=== PATIENT | female | born 1980 | race Asian ===

== ENCOUNTER 2023-11-22 15:48 | Outpatient (AMB) | payer BC, SELFPAY ==
--- NOTE | 2023-11-22 16:03 | A.OFFPC_ITS ---
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 Intake Note: New patient visit Residential Case Manager Required: No Allergies acetaminophen [From Vicodin] Allergy (Intermediate, Verified 11/22/23 16:04) Hives hydrocodone [From Vicodin] Allergy (Intermediate, Verified 11/22/23 16:04) Hives oxycodone [From Percocet] Allergy (Intermediate, Verified 11/22/23 16:04) Hives Tobacco use date assessed: 11/22/23 Dental Screening Dental Screen Date: 11/22/23 Did you have a dental visit in the last 12 months?: Yes Did you have a dental problem in the last 6 months where you did not have access to dental care?: No Was dental information given to patient?: Patient has dentist HPI HPI Comments History of Present Illness Details This is a 43-year-old female with a past medical history of elevated blood pressure, increased weight, impaired fasting glucose, anxiety, asthma, hyperlipidemia and attention deficit disorder presenting for a follow up. She transferred from my panel at [facility]. I last saw her in 07/17/2023. She is currently on Zepbound 12.5 mg. She has had 2 injections at this dose. She feels excellent. She says this medication has changed her life for the better in many ways. She is still doing weight training. Now she says she is seeing the effects of her training. She did not lose weight on the 10 mg dosage so she is hoping she has more of an effect with the 12.5. She had elevated blood pressure, but since losing weight her blood pressure has normalized. She is followed by a therapist and psychiatrist. They have reduced her dose of bupropion because she has been feeling really well. She is a busy mother. She has 11 and 15-year-old boys. ROS: Constitutional: No unexplained weight loss, fever, chills, fatigue or night sweats. Gastrointestinal: No anorexia, nausea, vomiting or diarrhea. No abdominal pain or blood in stool. Endocrine: No cold or heat intolerance. No polyuria or polydipsia. Physical exam: Constitutional: Alert, in no distress. Respiratory: Clear to auscultation. Cardiovascular: S1 S2 regular. No murmurs. Psychiatric: Normal mood and affect [facility] Medical History (Updated 11/22/23 @ 16:42 by MARIA LUISA Patel) Overweight Lump of right thigh Intermittent constipation IFG (impaired fasting glucose) Hyperlipidemia Elevated blood pressure reading ADD (attention deficit disorder) Asthma Anxiety disorder Surgical History (Updated 11/22/23 @ 16:17 by Janeen Cardona CMA) H/O cervical polypectomy Family History (Updated 11/22/23 @ 16:16 by Janeen Cardona CMA) Other Family history not known due to adoption Social History (Updated 11/22/23 @ 16:08 by Janeen Cardona CMA) Housing: House Patient Tobacco Use Status: Former Tobacco user Years Smoked: highschool years e-Cigarette/Vaping Use: Never Used Substance Use Type: Marijuana service: No Current occupational status: employed 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 1. Little interest or pleasure in doing things: several days 2. Feeling down, depressed, or hopeless: not at all 3. Trouble falling or staying asleep, or sleeping too much: not at all 4. Feeling tired or having little energy: several days 5. Poor appetite or overeating: not at all 6. Feeling bad about yourself - or that you are a failure or have let yourself or your family down: not at all 7. Trouble concentrating on things, such as reading the newspaper or watching television: several days 8. Moving or speaking so slowly that other people could have noticed. Or the opposite - being so fidgety or restless that you have been moving around a lot more than usual: not at all 9. Thoughts that you would be better off or of hurting yourself in some way: not at all Total score: 3 Depression Screening Interpretation: Positive Depression Screening Done: Yes 84336 - PHQ-9 Billing: Yes Source: Developed by Drs. Gene Ragsdale, Sunita Brooks, Juanjo Ortega and colleagues, with an educational donna from [employer]. Thrive Questionnaire Date Thrive assessed: 11/22/23 I am a: Patient What is your living situation today?: I have a steady place to live Within the past 12 months, did the food you bought not last and you didn't have the money to get more?: Never true Within the past 12 months, did you worry whether your food would run out before you got money to buy more?: Never true Do you have trouble paying for medicines?: No Do you have trouble getting transportation to medical appointments?: No Do you have trouble paying your heating and electricity bill?: No Do you have trouble taking care of your child, family member or friend?: No Do you have trouble with day-to-day activities such as bathing, preparing meals, shopping, managing finances, etc.?: No Are you currently unemployed and looking for a job?: No Are you interested in more education?: No Please select the resources that you would like help with: None Currently or been in a relationship where the following occur: No concerns reported THRIVE Score: 0 AUDIT C Alcohol Use Questionnaire (AUDIT-C) 1. How often do you have a drink containing alcohol?: 2-3 times a week 2. How many drinks containing alcohol do you have on a typical day when you are drinking?: 3 or 4 3. How often do you have six or more drinks on one occasion?: Less than monthly Total Score: 5 ALEX-7 AMB Questionnaire ALEX-7 Date ALEX - 7 assessed: 11/22/23 Feeling nervous, anxious, or on edge: 0 = Not at all Not being able to stop or control worryin = Not at all Worrying too much about different things: 0 = Not at all Trouble relaxin = Several days Being so restless that it is hard to sit still: 0 = Not at all Becoming easily annoyed or irritable: 1 = Several days Feeling afraid as if something awful might happen: 0 = Not at all Total ALEX-7 score (0-4 normal; 5-9 mild; 10-14 moderate; 15-21 severe): 2 Source: Developed by Drs. Gene Ragsdale, Sunita Brooks, Juanjo Ortega and colleagues, with an educational donna from [employer]. ALEX-7 Assessment Billing ALEX-7 Assessment Tool: ALEX-7 Assessment 43270 Physical exam (Primary Care) Vital Signs: Last Vital Signs Temp 98.6 F 11/22/23 16:09 Pulse 80 11/22/23 16:09 Resp 12 11/22/23 16:09 BP 116/72 11/22/23 16:09 Pulse Ox 98 11/22/23 16:09 Oxygen Delivery Method Room Air 11/22/23 16:09 BMI result Body Mass Index 23.9 Tobacco/Smoking Status: Tobacco use Status Tobacco use date assessed 11/22/23 11/22/23 16:13 Patient Tobacco Use Status Former Tobacco user 11/22/23 16:13 e-Cigarette/Vaping Use Never Used 11/22/23 16:13 Depression Screening Interpretation: Positive Currently or been in a relationship where the following occur: No concerns reported Assessment and Plan Assessment & Plan (1) IFG (impaired fasting glucose): Code(s): R73.01 - Impaired fasting glucose (2) Hyperlipidemia: Code(s): E78.5 - Hyperlipidemia, unspecified Qualifiers: Hyperlipidemia type: pure hypercholesterolemia Qualified Code(s): E78.00 - Pure hypercholesterolemia, unspecified Plan In summary this is a 43-year-old previously overweight female who has done very well on GLP1. She is unsure if she is going to increase to the 15 mg dosage. She will message me after the next couple of weeks on the 12.5 mg dose. She tolerates it well. Her BMI is within normal now. Elevated blood pressure resolved. We will check hemoglobin A1c, fasting glucose and lipid profile in another couple of months. Orders placed. She will schedule her physical exam which is due in April. Orders: Orders Hemoglobin A1c Today E78.5 - Hyperlipidemia, unspecified, R73.01 - Impaired fasting glucose Lipid Panel Today E78.5 - Hyperlipidemia, unspecified, R73.01 - Impaired fasting glucose Glucose Fasting Today E78.5 - Hyperlipidemia, unspecified, R73.01 - Impaired fasting glucose Coding Level of Care Code Est Pt Level 4 (36964) Complex EM visit Add On G2211 Diagnoses IFG (impaired fasting glucose) R73.01 Pure hypercholesterolemia E78.00 Hyperlipidemia type: pure hypercholesterolemia Additional Codes ALEX-7 Assessment Billing - ALEX-7 Assessment Tool: ALEX-7 Assessment 97250 ([id number])
[2023-11-22 16:09] VITALS: BP 116/72; PULSE 80; RESP 12; TEMP 37; O2SAT 98; BMI 23.9
== END 2023-11-22 16:31 | disposition home or self-care (01) ==
PROVIDERS: Visit Provider Physician Assistant Medical
DX: R73.01 Impaired fasting glucose (principal); E78.00 Pure hypercholesterolemia, unspecified
CPT/HCPCS: 99214

== ENCOUNTER 2024-05-08 16:14 | Outpatient (AMB) | payer BC, SELFPAY ==
--- NOTE | 2024-05-08 16:16 | MHC.PC.OV ---
Vital Signs 05/08/24 16:23 Height 5 ft 2.36 in Weight 123 lb 8 oz BMI 22.3 BP 128/72 Blood Pressure Location Lt brachial Position Sitting Pulse 99 Pulse Source Pulse Oximeter Pulse Oximetry (%) 100 Oxygen Delivery Method Room Air Intake Visit Reasons: annual physical exam Allergies acetaminophen [From Vicodin] Allergy (Intermediate, Verified 05/08/24 16:25) Hives hydrocodone [From Vicodin] Allergy (Intermediate, Verified 05/08/24 16:25) Hives oxycodone [From Percocet] Allergy (Intermediate, Verified 05/08/24 16:25) Hives Tobacco use date assessed: 05/08/24 Dental Screening Dental Screen Date: 05/08/24 Did you have a dental visit in the last 12 months?: Yes Did you have a dental problem in the last 6 months where you did not have access to dental care?: No Was dental information given to patient?: Patient has dentist HPI HPI Comments History of Present Illness Details This is a 43-year-old female with a past medical history of elevated blood pressure, increased weight, impaired fasting glucose, anxiety, asthma, hyperlipidemia and attention deficit disorder presenting for a physical exam. She is currently on Zepbound 10 mg She feels excellent. She says this medication has changed her life for the better in many ways. She is still doing weight training. Her BMI is now 22.3. She has lost another 10 lb since her last visit with me at the end of the summer. She is also maintaining her weight loss. She had elevated blood pressure, but this normalized since losing weight. Her recent lab results were reviewed, and they are normal including A1c and cholesterol results. She is followed by a therapist and psychiatrist. She is stable on her medications. She is a busy mother. She has twelve and 16-year-old boys. 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 Up to date. Mammogram is up to date. Stays UTD with dental and eye exams. ROS: Constitutional: No unexplained weight loss, fever, chills, fatigue or night sweats. Eyes: No vision changes, blurry vision, double vision, eye pain, eye redness, eye discharge. ENT: No hearing loss, sneezing, congestion, runny nose or sore throat. Respiratory: No shortness of breath, cough or sputum production. Cardiovascular: No chest pain, chest pressure or chest discomfort. No palpitations or pedal edema. Gastrointestinal: No anorexia, nausea, vomiting or diarrhea. No abdominal pain or blood in stool. Genitourinary: No dysuria, hematuria, urinary frequency. Neurologic: No headache, dizziness, syncope, unilateral weakness, ataxia, numbness or tingling in the extremities. Musculoskeletal: No muscle pain, back pain, joint pain or swelling. Hematologic/Lymphatics: No bleeding or bruising. No painful lymph nodes. Skin: No rash or itching. No changing moles or new skin lesions. Endocrine: No cold or heat intolerance. No polyuria or polydipsia. Psychiatric:No SI/HI. Physical exam: Constitutional: Alert, in no distress. Head: Normocephalic. Eyes: Pupils are equal, round and reactive to light. Extraocular muscles intact. Ear, Nose and Throat: Canals clear. TMs normal. Normal nasal mucosa. No nasal discharge. No oral lesions. Neck: Supple, Full range of motion. No lymphadenopathy. No palpable thyroid masses. Respiratory: Clear to auscultation. Cardiovascular: S1 S2 regular. No murmurs. No carotid bruits. Gastrointestinal: Abdomen soft, non-tender, non-distended. Normal bowel sounds. No palpable masses. Neurologic: No focal neurological deficits. Symmetric patellar reflexes. Moves all extremities spontaneously. Sensation intact bilaterally. Skin: No rashes or lesions. Musculoskeletal: No gross deformities. Normal range of motion. Extremities: Warm and well perfused. No clubbing, cyanosis or edema. 3+ peripheral pulses bilaterally. Psychiatric: Normal mood and affect [facility] Medical History (Updated 05/08/24 @ 17:28 by MARIA LUISA Patel) Routine physical examination Overweight Lump of right thigh Intermittent constipation IFG (impaired fasting glucose) Hyperlipidemia Elevated blood pressure reading ADD (attention deficit disorder) Asthma Anxiety disorder Surgical History H/O cervical polypectomy Family History Other Family history not known due to adoption Social History Housing: House Patient Tobacco Use Status: Former Tobacco user Years Smoked: highschool years e-Cigarette/Vaping Use: Never Used Substance Use Type: Marijuana service: No Current occupational status: employed 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 1. Little interest or pleasure in doing things: not at all 2. Feeling down, depressed, or hopeless: not at all 3. Trouble falling or staying asleep, or sleeping too much: not at all 4. Feeling tired or having little energy: not at all 5. Poor appetite or overeating: not at all 6. Feeling bad about yourself - or that you are a failure or have let yourself or your family down: not at all 7. Trouble concentrating on things, such as reading the newspaper or watching television: not at all 8. Moving or speaking so slowly that other people could have noticed. Or the opposite - being so fidgety or restless that you have been moving around a lot more than usual: not at all 9. Thoughts that you would be better off or of hurting yourself in some way: not at all Total score: 0 Depression Screening Interpretation: Negative Depression Screening Done: Yes 09826 - PHQ-9 Billing: Yes Source: Developed by Drs. Gene Ragsdale, Sunita Brooks, Juanjo Ortega and colleagues, with an educational donna from [employer]. Thrive Questionnaire Date Thrive assessed: 05/08/24 I am a: Patient What is your living situation today?: I have a steady place to live Within the past 12 months, did the food you bought not last and you didn't have the money to get more?: Never true Within the past 12 months, did you worry whether your food would run out before you got money to buy more?: Never true Do you have trouble paying for medicines?: No Do you have trouble getting transportation to medical appointments?: No Do you have trouble paying your heating and electricity bill?: No Do you have trouble taking care of your child, family member or friend?: No Do you have trouble with day-to-day activities such as bathing, preparing meals, shopping, managing finances, etc.?: No Are you currently unemployed and looking for a job?: No Are you interested in more education?: No Please select the resources that you would like help with: None Currently or been in a relationship where the following occur: No concerns reported THRIVE Score: 0 AUDIT C Alcohol Use Questionnaire (AUDIT-C) 1. How often do you have a drink containing alcohol?: 2-3 times a week 2. How many drinks containing alcohol do you have on a typical day when you are drinking?: 3 or 4 3. How often do you have six or more drinks on one occasion?: Never Total Score: 4 ALEX-7 AMB Questionnaire ALEX-7 Date ALEX - 7 assessed: 05/08/24 Feeling nervous, anxious, or on edge: 0 = Not at all Not being able to stop or control worryin = Not at all Worrying too much about different things: 1 = Several days Trouble relaxin = Not at all Being so restless that it is hard to sit still: 0 = Not at all Becoming easily annoyed or irritable: 0 = Not at all Feeling afraid as if something awful might happen: 1 = Several days Total ALEX-7 score (0-4 normal; 5-9 mild; 10-14 moderate; 15-21 severe): 2 Source: Developed by Drs. Gene Ragsdale, Sunita Brooks, Juanjo Ortega and colleagues, with an educational donna from [employer]. ALEX-7 Assessment Billing ALEX-7 Assessment Tool: ALEX-7 Assessment 95631 Physical exam (Primary Care) Vital Signs: Last Vital Signs Pulse 99 05/08/24 16:23 BP 128/72 05/08/24 16:23 Pulse Ox 100 05/08/24 16:23 Oxygen Delivery Method Room Air 05/08/24 16:23 BMI result Body Mass Index 22.3 Tobacco/Smoking Status: Tobacco use Status Tobacco use date assessed 05/08/24 05/08/24 16:27 Patient Tobacco Use Status Former Tobacco user 05/08/24 16:20 e-Cigarette/Vaping Use Never Used 05/08/24 16:20 PHQ-9: PHQ-9 Score PHQ-9: Total score 0 05/08/24 16:40 Depression Screening Interpretation: Negative Thrive Assessment: Date of Thrive Assessment Date Thrive assessed 05/08/24 05/08/24 16:20 Currently or been in a relationship where the following occur: No concerns reported Office Procedures Flu Questionnaire Does the patient have a severe egg allergy?: No Does the patient have severe life threatening allergies?: No Does the patient have a fever or illness today?: No Has the patient ever had Guillain-Harwood Syndrome?: No Has the patient ever had any past reaction to a flu shot?: No Immunizations Fluarix Triv 6833-8088 (PF) 45 mcg (15 mcg x 3)/0.5 mL IM syringe Performing Provider: MARIA LUISA Patel [place] [facility] Administered by: Marifer Rivera CMA on 05/08/24 16:55 Dose Route Admin Location Dispensed Lot Number Expiration Date NDC Radiologic Therapist 0.5 mL IM Left Tricep 0.5 mL [id number] 09/25/24 [id number] [employer] VIS Given Date VIS Provided VIS Publication Date 05/08/24 Single Vaccine 20 Eligibility Eligibility Date Funding Source Not [facility] Eligible 05/08/24 Private Coding Level of Care Code Est Pt Prev Care 40-64y(19346) Diagnoses Routine physical examination Z00.00 Additional Codes ALEX-7 Assessment Billing - ALEX-7 Assessment Tool: ALEX-7 Assessment 42824 ([id number]) PHQ-9 - 44581 - PHQ-9 Billing: Yes ([id number]) Assessment & Plan Assessment & Plan (1) Routine physical examination: Code(s): Z00.00 - Encounter for general adult medical examination without abnormal findings Category: Medical Plan: Patient is seen today for a routine physical. As part of this visit we reviewed the following issues, which are considered and essential part of preventative health in this age group: - Breast Cancer screening - Annual Structural Metal Worker exam - Screening for colon cancer - no known family history of colon cancer (patient adopted). Start screening age 45 unless otherwise indicated. - Blood pressure screening - Cholesterol screening - Osteoporosis prevention including calcium/vitamin D intake, weight bearing exercise & smoking cessation - Nutritional and exercise counseling - Counseling of injury prevention including fire prevention, smoke alarms and seat belt usage - Screening for depression - Prevention of and/or testing for infectious diseases - Education about skin cancer - Recommendations about immunizations - Recommendation of an eye exam - Screening for substance abuse Patient will continue management with her psychiatrist. She will continue Zepbound 10 mg at this time. She is tolerating it and has continued to lose weight and maintain weight loss. She continues weight training and following a diet for maintaining her weight. Re-evaluate dose at next visit. We could consider starting to taper it down. Orders: Orders Influenza [id number] Immunization Today Z23 - Encounter for immunization Medications: Refilled tirzepatide (weight loss) (Zepbound) 10 mg (0.5 mL) subcut QWEEK 2 mL 5RF Discontinued tirzepatide (weight loss) (Zepbound) Discontinued Reason: Doctor's Order 12.5 mg (0.5 mL) subcut QWEEK 2 mL 0RF
[2024-05-08 16:23] VITALS: BP 128/72; PULSE 99; O2SAT 100; BMI 22.3
== END 2024-05-08 17:05 ==
PROVIDERS: PCP Physician Assistant Medical; Visit Provider Physician Assistant Medical
DX: Z23 Encounter for immunization (principal); Z00.00 Encounter for general adult medical examination without abnormal findings